=== PATIENT | female | born 1945 | race Caucasian/White ===

== ENCOUNTER → 2019-10-30 | Outpatient (CLI) | payer OTHER ==
--- NOTE | 2019-11-03 12:07 | PATH ---
[address] [address] PATHOLOGY RPT PROCEDURE Name: YANIQUE SAMUEL Room: [facility] Devorah#: [id number] Admission: 10/30/19 Date of : 45 Discharge: Report #: [id number] Path Case #: [id number] [facility] Accession Number: [id number] . 01 Material submitted: . breast - RIGHT BREAST STEREOTACTIC BIOPSY FOR CALCIFICATIONS. Modifiers: right . 01 Clinical history: . Right breast stereotactic biopsy for calcifications. . 02 Diagnosis: Right breast calcifications, stereotactic biopsy: - DUCTAL CARCINOMA IN SITU (DCIS), NUCLEAR GRADE III (HIGH-GRADE), COMEDO AND SOLID TYPES, SPANNING AT LEAST 7 MM, ASSOCIATED WITH CALCIFICATIONS. SEE COMMENT. (ROSE:pit 11/03/2019) QTP 11/03/2019 0950 Local . 02 Comment: In scattered areas the in situ neoplasia has a lobular appearance and for this reason properly controlled immunohistochemical studies are performed on A2 with these neoplastic cells showing the following results, supporting the classification: . E-cadherin: Strong positive High molecular weight cytokeratin: Negative to scattered focal positive . DCIS is seen most prominently in A2 and A1 and also focally in A3. Breast tumor profile studies are pending on A1 and will be the subject of an addendum report. . Reviewed with Dr. Marbin Qureshi who agrees with the diagnosis. Lisandra (acting [facility] breast navigator) notified at approximately 1150 on 11/03/2019. (ROSE:pit 11/03/2019) . 02 Electronically signed: . Alejandro Meza MD, Pathologist NPI- [id number] . 01 Gross description: . Received in formalin labeled "Yanique Samuel, right breast calcification" are multiple cylindrical yellow-glasgow lobulated soft tissue cores measuring in aggregate 3.6 x 1.5 x 0.3 cm. The specimen is submitted entirely in cassettes A1-A3. The specimen is removed from the patient at 1020 and placed in formalin at 1030 on 10/30/2019. The specimen is removed from formalin at 2340 on 10/30/2019. ([facility]; 10/30/2019) [place] [address] PATHOLOGY RPT PROCEDURE Name: YANIQUE SAMUEL [place] Room: [facility] Fair[place]#: [id number] Admission: 10/30/19 Date of : 45 Discharge: Report #: [id number] Path Case #: [id number] SYC/SYC 10/30/20198 Local . 02 Pathologist provided ICD-10: D05.11 . 02 CPT . 267181, G88172, R22273 Specimen Comment: A courtesy copy of this report has been sent to [phone], [phone] Specimen Comment: [phone], , Specimen Comment: Report sent to ,DR SAMUEL,DR SALOMON / DR LAUREN Performed at: [address], [place], [place] [id number] MD Yoseph Jacques MD Phone: [phone] Performed at: [facility] [address], [place], [place] [id number] MD Alejandro Meza MD Phone: [phone]
== END ==
LOC: M.RAD 09:37
DX: N63.10 Unspecified lump in the right breast, unspecified quadrant (principal); R92.1 Mammographic calcification found on diagnostic imaging of breast

== ENCOUNTER → 2019-11-06 | Outpatient (CLI) | payer OTHER ==
[2019-11-06 11:07] LABS: CREATININE 1.1 mg/dL (0.6-1.3)
== END ==
LOC: M.LAB 10:30 → M.MRI 11:30
PROVIDERS: Surgery
DX: D05.11 Intraductal carcinoma in situ of right breast (principal); R92.2 Inconclusive mammogram

== ENCOUNTER → 2019-11-07 | Outpatient (CLI) | payer OTHER ==
--- NOTE | 2019-11-09 00:12 | CON ---
[address] [address] CONSULTATION Name: PHILLNARINDER Lexus Room: [facility].#: [id number] Admission: 11/07/19 Attend Phys: Humberto Sanchez MD Discharge: Date of : 45 Report #: [id number] THIS REPORT FOR: //name// cc: Homar Espinoza MD, Arthur MD ~ THIS REPORT FOR: //name// CC: Dr. Homar Adkins MD DATE OF SERVICE: 11/07/2019 [facility] RADIATION ONCOLOGY CONSULTATION NOTE REFERRING PHYSICIANS: Include Dr. Keiry Bautista, Dr. Syd Adkins as well as Dr. Homar Espinoza PRIMARY SITE AND HISTOPATHOLOGY: The patient has findings consistent with a grade 3 ductal carcinoma in situ of the right breast. HISTORY OF PRESENT ILLNESS: The patient is a 74-year-old woman who had a routine [facility]2019 and that revealed a developing group of calcifications in the upper outer quadrant of the right breast. She denied having any palpable masses in that area. She denied having any nipple discharge. She ended up having a stereotactic guided right breast Mammotome biopsy at [facility] on 10/30/2019 which revealed a successful mammographic stereotactic biopsy of a focal group of calcifications in the upper outer quadrant of the right breast. The pathology revealed nuclear grade 3 ductal carcinoma in situ that measured about 0.7 cm. She also had an MRI whose results are still pending. From the pathology, the ductal carcinoma in situ was 80% estrogen receptor positive and 50% progesterone receptor positive. She said she has an appointment scheduled with the medical oncologist, Dr. Adkins, next week. She spoke with her surgeon, Dr. Keriy Bautista on 11/05/2019 and right now is wanting to pursue breast conservation therapy with the use of a PRANAY devices. PAST MEDICAL HISTORY AND PAST SURGICAL HISTORY: Includes tonsillectomy and adenoidectomy when she was a teenager. Also, she had an appendectomy as a teenager. She had a complete hysterectomy when she was in her 30s. She had a hemorrhoidectomy in her early 60s. She had a coronary artery stent placed on 10/08/2014. She had right knee surgery on 03/16/2017, when they operated on a cyst and meniscus repair. She also had left knee surgery on 08/27/2018. [place] [address] CONSULTATION Name: NARINDER POLLOCK Room: [facility]#: [id number] Admission: 11/07/19 Attend Phys: Humberto Sanchez MD Discharge: Date of : 45 Report #: [id number] MEDICATIONS: Estradiol, triamterene/hydrochlorothiazide, isosorbide mononitrate, celecoxib, baby aspirin and she takes Tylenol for arthritis pain. ALLERGIES: CIPRO. OBSTETRIC AND GYNECOLOGY: Menarche around age 17. Menopause in her late 30s. Paternal grandfather had cardiovascular disease. FAMILY HISTORY: Father had colon cancer. SOCIAL HISTORY: The patient is a legal billing coordinator. She is . She has 1 son. She does smoke cigarettes. She smokes about 7-10 cigarettes per day. She smoked cigarettes for about the last 50 years. REVIEW OF SYSTEMS: GENERAL: She denied having any fevers or chills. SKIN: She denied having any color changes, itching. LYMPH NODES: She denied having enlarged or painful glands. ENDOCRINE: She denied having any hot or cold intolerance. HEMATOLOGY AND IMMUNOLOGY: She denied having any anemia or recent bleeding. MUSCULOSKELETAL: She does have arthritis in her knees. HEAD AND NECK: She denied having any headaches. RESPIRATION: She denied having shortness of breath. CARDIOVASCULAR: She denied having palpitations. GASTROINTESTINAL: She denied having any nausea. NEUROLOGIC: She does not have any focal weakness. PHYSICAL EXAMINATION: With my nurse, Marisol Kolb, present: VITAL SIGNS: Height was 5 feet 5 inches, weight 196.8 pounds, blood pressure was 127/72, pulse 77, oxygen saturation was 99%, temperature 97.6 degrees Fahrenheit. LYMPH NODES: The patient had no cervical, supraclavicular or axillary lymphadenopathy. EYES: Pupils were equal, round, reactive to light and accommodation. HEAD, EARS, NOSE AND THROAT: Mouth had no visible lesions. HEART: Had a regular rate and rhythm without murmur. LUNGS: were clear to auscultation. BREASTS: Right breast has an area where she had her biopsy. There was about a 1.5 cm x 1.5 cm seroma in the upper outer quadrant. Otherwise, there were no suspicious palpable masses involving the right breast. There is no suspicious palpable masses involving the left breast. ABDOMEN: Not tender. Spleen was not palpable. Liver was at the costal margin. EXTREMITIES: Had no clubbing, cyanosis or edema. NEUROLOGIC: Cranial nerves II to XII were intact. Sensation [place] [address] CONSULTATION Name: NARINDER POLLOCK Room: [facility] [place]#: [id number] Admission: 11/07/19 Attend Phys: Humberto Sanchez MD Discharge: Date of : 45 Report #: [id number] had 5/5 strength in her extremities. ASSESSMENT AND PLAN: The patient has a grade 3 ductal carcinoma in situ involving the right breast. MRI results are still pending. She does realize her treatment options include breast conservation therapy versus mastectomy. At this point, she would like to pursue breast conservation therapy. She had discussed partial breast irradiation with an PRANAY device with Dr. Bautista, right now she prefers that over external beam whole breast radiation therapy after lumpectomy. The efficacy of radiation therapy for a ductal carcinoma in situ of the breast can be found in the article entitled pathologic findings from the National Surgical Adjuvant Breast Project 8-year update of protocol B17. In that study they had patients with ductal carcinoma in situ, who underwent lumpectomy and were randomized to radiation therapy versus no radiation therapy. In the patients who had higher grade ductal carcinoma in situ had a recurrence rate of about a 40% at 8 years without radiation therapy versus 14% with radiation therapy. In terms of more recent studies where they used partial breast irradiation they did a study with the title "update on ductal carcinoma in situ outcomes with the [employer] breast surgeons accelerated partial breast irradiation trial" and those people who received partial breast irradiation in the trial, at that time had the Mammosite device that was used and the 5-year local recurrence rate was about 3.39%. In that study about 36.6% of the patient had high-grade ductal carcinoma in situ. So the risks, benefits, logistics of radiation therapy for breast cancer were explained to the patient in detail. She gave her witnessed, informed consent to proceed with radiation therapy. She will probably be in touch with her surgeon after the MRI to help finalize the surgeon's plans and I will ask my staff to coordinate with the surgeon at that point. She also has an appointment with the medical oncologist, Dr. Adkins around 11/14/2019. I told the patient she will probably discuss discontinuing her estradiol at that point and possibly talk about an antiestrogen agent. Thank you very much for this consult. <ELECTRONICALLY SIGNED> By: Humberto Sanchez MD 11/09/19 0012 [id number] [id number] Sanchez MD /nt
== END ==
LOC: M.RTH 01:18
DX: D05.92 Unspecified type of carcinoma in situ of left breast (principal); Z88.1 Allergy status to other antibiotic agents; Z79.899 Other long term (current) drug therapy